=== PATIENT | female | born 1965 | race Caucasian/White ===

== ENCOUNTER 2021-12-30 16:37 | Inpatient (IN) | payer BC ==
[2021-12-30 17:17] LABS: #Basophils 0.1 10x3/uL (0.0-0.2); #Eosinphils 0.5 10x3/uL (0.0-0.5); #Monocytes 0.2 10x3/uL (0.0-1.1); #Neutrophils 1.9 10x3/uL (1.5-8.4); %Basophils 1.5 % (0.0-2.0); %Eosinophils 9.9 % (0.0-6.0); %Lymphocytes 41.8 % (18.0-47.0); %Neutrophils 41.6 % (40.0-75.0); Hemoglobin 13.5 g/dL (12.0-15.5); Mean Corpuscular HGB CONC 34.2 g/dL (32.0-36.0); Mean Corpuscular Hemoglobin 30.4 pg (27.0-33.0); Mean Platelet Volume 10.1 fl (7.4-10.4); Platelet Count 278 10x3/uL (150-450); Red Blood Cell (RBC) Count 4.44 10x6/uL (3.90-5.03); White Blood Cell (WBC) Count 4.6 10x3/uL (3.5-10.5)
[2021-12-30 17:27] LABS: ALT (SGPT) 70 U/L (8-55); AST (SGOT) 137 U/L (5-34); Albumin 2.6 g/dL (3.5-5.0); Alkaline Phosphatase 116 U/L (40-110); Anion Gap 15 mmol/L (10-20); BUN (Urea Nitrogen) 9 mg/dL (9.8-20.1); Bilirubin, Total 1.4 mg/dL (0.2-1.2); Calc. Creatinine Clearance 0 mL/min (70-130); Calcium 8.6 mg/dL (7.8-10.44); Carbon Dioxide 24 mmol/L (22-29); Chloride 104 mmol/L (98-107); Estimated GFR 72; Globulin 2.9 g/dL (2.4-3.5); Glucose 119 mg/dL (70-105); Lipase 12 U/L (8-78); Potassium 3.3 mmol/L (3.5-5.1); Protein, Total 5.5 g/dL (6.0-8.3); Sodium 140 mmol/L (136-145)
[2021-12-30] MEDS ORDERED: Ondansetron ODT 4 MG TAB ONE (19:23)
[2021-12-30 20:26] LABS: Lactic Acid 1.3 mmol/L (0.5-2.2)
[2021-12-30] MEDS ORDERED: Potassium Chloride 20 MEQ TAB ONE (20:53)
[2021-12-30 21:36] LABS: Bilirubin Neg (Negative); Blood, Urine 10 (Negative); Clarity Clear (Clear); Glucose, Urine (Dipstick) Normal (Negative); Ketone, Urine 5 mg/dL (Negative); Leukocyte 25 (Negative); Nitrite Negative (Negative); Protein, Urine (Dipstick) 15 mg/dl (Neg-Trace)
[2021-12-30 21:52] LABS: Bacteria/HPF Rare-Few HPF (None Seen); Squamous Epithelial 0-3 HPF (0-3)
[2021-12-31] MEDS ORDERED: Ondansetron PF 4 MG/2 ML Vial IVP PRN (00:29)
[2021-12-31 02:16] LABS: SARS-CoV-2 NAA Rapid Test Not Detected (NotDetected)
[2021-12-31] MEDS: Pantoprazole 40 MG VIAL IVP SCH ×2 (02:57→17:51)
[2021-12-31] MEDS: Multivitamins, Adult 10 ML, Folic Acid 1 MG, Thiamine HCl 100 MG in Dextrose 5 %-0.45 %... IV SCH (02:57)
[2021-12-31] MEDS: Thiamine HCl 200 MG/2 ML VIAL SLOW IVP SCH (03:16)
[2021-12-31] MEDS ORDERED: FLU VACC QS2022-23(6MOS UP)/PF 60 MCG/0.5 ML SYRINGE IM ONE (04:30)
[2021-12-31 06:01] LABS: #Basophils 0.1 10x3/uL (0.0-0.2); #Eosinphils 0.1 10x3/uL (0.0-0.5); #Monocytes 0.3 10x3/uL (0.0-1.1); #Neutrophils 1.6 10x3/uL (1.5-8.4); %Basophils 1.3 % (0.0-2.0); %Eosinophils 2.3 % (0.0-6.0); %Lymphocytes 47.3 % (18.0-47.0); %Monocytes 7.1 % (0.0-10.0); %Neutrophils 41.7 % (40.0-75.0); Hemoglobin 11.1 g/dL (12.0-15.5); Mean Corpuscular HGB CONC 34.8 g/dL (32.0-36.0); Mean Corpuscular Hemoglobin 31.2 pg (27.0-33.0); Mean Corpuscular Volume 89.6 fl (81.6-98.3); Platelet Count 181 10x3/uL (150-450); RBC Distribution Width 16.4 % (11.5-14.5); Red Blood Cell (RBC) Count 3.56 10x6/uL (3.90-5.03); White Blood Cell (WBC) Count 3.9 10x3/uL (3.5-10.5)
[2021-12-31 06:09] LABS: Anion Gap 10 mmol/L (10-20); BUN (Urea Nitrogen) 7 mg/dL (9.8-20.1); Calc. Creatinine Clearance 77 mL/min (70-130); Calcium 7.7 mg/dL (7.8-10.44); Carbon Dioxide 23 mmol/L (22-29); Chloride 110 mmol/L (98-107); Estimated GFR 84; Glucose 110 mg/dL (70-105); Magnesium 1.7 mg/dL (1.6-2.6); Potassium 3.4 mmol/L (3.5-5.1); Sodium 140 mmol/L (136-145)
[2021-12-31 06:55] LABS: HBSAg Index 0.22 S/CO (0-0.99); Hep B Surf Ag Non-Reactive S/CO (NonReactive); Thyroid Stimulating Hormone 8.9838 uIU/mL (0.35-4.94)
[2021-12-31] MEDS: Potassium Chloride 20 MEQ in Lactated Ringer's 1,000 ML IV SCH ×2 (09:47→17:55)
[2021-12-31] MEDS: Enoxaparin Sodium 40 MG/0.4 ML SYRINGE SC SCH (09:47)
[2021-12-31 13:13] LABS: Amphetamine Not Detected (NotDetected); Barbiturates Screen Not Detected (NotDetected); Benzodiazepine Screen Not Detected (NotDetected); Cocaine Metabolite Screen Not Detected (NotDetected); Methadone Not Detected (NotDetected); Methamphetamine Not Detected (NotDetected); Opiate Screen Not Detected (NotDetected); Oxycodone Screen Not Detected (NotDetected); Phencyclidine (PCP) Not Detected (NotDetected); THC/Cannabinoid Screen Not Detected (NotDetected); Tricyclic Screen Not Detected (NotDetected)
[2021-12-31 13:19] LABS: Hep C IgG Ab Non-Reactive (NonReactive); Hep C Index 0.08 S/CO (0-0.79)
[2021-12-31] MEDS ORDERED: PROPOFOL 20 ML ONE (13:35)
[2021-12-31] MEDS ORDERED: Fentanyl 100 MCG/2 ML VIAL ONE (13:35)
[2021-12-31] MEDS ORDERED: Iopamidol 370 76% 100 ML VIAL ONE (13:43)
[2021-12-31] MEDS: risperiDONE 0.25 MG TAB PO SCH ×2 (17:54→20:13)
[2021-12-31] MEDS: Gabapentin 400 MG CAP PO SCH (20:12)
[2022-01-01] MEDS: Potassium Chloride 20 MEQ in Lactated Ringer's 1,000 ML IV SCH ×2 (00:48→10:48)
[2022-01-01] MEDS: Multivitamins, Adult 10 ML, Folic Acid 1 MG, Thiamine HCl 100 MG in Dextrose 5 %-0.45 %... IV SCH (02:54)
[2022-01-01] MEDS: Pantoprazole 40 MG VIAL IVP SCH ×2 (03:27→16:32)
[2022-01-01] MEDS: Thiamine HCl 200 MG/2 ML VIAL SLOW IVP SCH (03:27)
[2022-01-01 06:20] LABS: ALT (SGPT) 50 U/L (8-55); AST (SGOT) 96 U/L (5-34); Albumin 1.8 g/dL (3.5-5.0); Alkaline Phosphatase 84 U/L (40-110); Anion Gap 10 mmol/L (10-20); BUN (Urea Nitrogen) 5 mg/dL (9.8-20.1); Bilirubin, Total 1.6 mg/dL (0.2-1.2); Calc. Creatinine Clearance 83 mL/min (70-130); Calcium 7.8 mg/dL (7.8-10.44); Carbon Dioxide 24 mmol/L (22-29); Chloride 112 mmol/L (98-107); Estimated GFR 92; Glucose 95 mg/dL (70-105); Iron Binding Capacity, Total 75 mcg/dL (265-497); Magnesium 1.6 mg/dL (1.6-2.6); Phosphorus 3.3 mg/dL (2.3-4.7); Potassium 4.6 mmol/L (3.5-5.1); Protein, Total 3.8 g/dL (6.0-8.3); Sodium 141 mmol/L (136-145)
[2022-01-01 07:24] LABS: Ferritin 449.62 ng/mL (10-291)
[2022-01-01 07:26] VITALS: BMI 26.4
[2022-01-01] MEDS: Enoxaparin Sodium 40 MG/0.4 ML SYRINGE SC SCH (09:38)
[2022-01-01] MEDS: Stress 600 With Zinc 1 TAB PO SCH (09:40)
[2022-01-01] MEDS: risperiDONE 0.25 MG TAB PO SCH ×3 (09:40→21:51)
[2022-01-01] MEDS: clonazePAM 0.5 MG TAB PO SCH (09:41)
[2022-01-01] MEDS ORDERED: Morphine 4 MG/ML VIAL SLOW IVP SCH (10:30)
[2022-01-01 11:03] LABS: Troponin I Less than 0.010 ng/mL (< 0.028)
[2022-01-01] MEDS: Albumin 25% 25 GM/100 ML BOT IVPB SCH (21:51)
[2022-01-01] MEDS: Gabapentin 400 MG CAP PO SCH (21:51)
[2022-01-02] MEDS: Multivitamins, Adult 10 ML, Folic Acid 1 MG, Thiamine HCl 100 MG in Dextrose 5 %-0.45 %... IV SCH (03:01)
[2022-01-02] MEDS: Potassium Chloride 20 MEQ in Lactated Ringer's 1,000 ML IV SCH ×3 (03:01→21:48)
[2022-01-02] MEDS: Pantoprazole 40 MG VIAL IVP SCH ×2 (03:01→15:04)
[2022-01-02] MEDS: Thiamine HCl 200 MG/2 ML VIAL SLOW IVP SCH (03:01)
[2022-01-02] MEDS: Albumin 25% 25 GM/100 ML BOT IVPB SCH ×2 (06:23→15:04)
[2022-01-02] MEDS ORDERED: Levothyroxine Sodium 100 MCG TAB PO SCH (09:00)
[2022-01-02] MEDS: risperiDONE 0.25 MG TAB PO SCH ×3 (10:00→21:50)
[2022-01-02] MEDS: clonazePAM 0.5 MG TAB PO SCH (10:00)
[2022-01-02] MEDS: Enoxaparin Sodium 40 MG/0.4 ML SYRINGE SC SCH (10:00)
[2022-01-02] MEDS ORDERED: Levothyroxine Sodium 100 MCG TAB ONE (10:03)
[2022-01-02] MEDS: Stress 600 With Zinc 1 TAB PO SCH (10:05)
[2022-01-02] MEDS ORDERED: Ketorolac Tromethamine 30 MG/ML VIAL IVP SCH (17:45)
[2022-01-02] MEDS ORDERED: Scopolamine 1.5 mg/72 hour Patch TOP SCH (21:00)
[2022-01-02] MEDS: Gabapentin 400 MG CAP PO SCH (21:50)
[2022-01-03] MEDS: Pantoprazole 40 MG VIAL IVP SCH ×2 (03:35→15:10)
[2022-01-03] MEDS: Thiamine HCl 200 MG/2 ML VIAL SLOW IVP SCH (03:35)
[2022-01-03] MEDS: Multivitamins, Adult 10 ML, Folic Acid 1 MG, Thiamine HCl 100 MG in Dextrose 5 %-0.45 %... IV SCH (03:35)
[2022-01-03] MEDS ORDERED: Levothyroxine Sodium 100 MCG TAB PO SCH (06:00)
[2022-01-03] MEDS: Potassium Chloride 20 MEQ in Lactated Ringer's 1,000 ML IV SCH ×2 (06:46→17:30)
[2022-01-03] MEDS ORDERED: EPINEPHrine 1 MG/ML AMP ONE (07:41)
[2022-01-03] MEDS ORDERED: Iopamidol 30 ML ONE (07:42)
[2022-01-03] MEDS ORDERED: Bupivacaine PF 0.5% 30 ML VIAL ONE (07:42)
[2022-01-03] MEDS ORDERED: PROPOFOL 20 ML ONE (07:57)
[2022-01-03] MEDS ORDERED: Fentanyl 250 MCG/5 ML VIAL ONE (07:58)
[2022-01-03] MEDS ORDERED: Glycopyrrolate 0.2 MG/ML 5 ML SYRINGE ONE (07:58)
[2022-01-03] MEDS ORDERED: Rocuronium Bromide 10 MG/ML (10ML VIAL) ONE (07:58)
[2022-01-03] MEDS ORDERED: Metoclopramide HCl 10 MG/2 ML VIAL ONE (07:58)
[2022-01-03] MEDS ORDERED: Dexamethasone 4 mg/ml Vial ONE (07:58)
[2022-01-03] MEDS ORDERED: Ondansetron PF 4 MG/2 ML Vial ONE (07:58)
[2022-01-03] MEDS ORDERED: Ketorolac Tromethamine 30 MG/ML VIAL ONE (07:59)
[2022-01-03] MEDS: clonazePAM 0.5 MG TAB PO SCH (08:03)
[2022-01-03] MEDS: risperiDONE 0.25 MG TAB PO SCH ×2 (08:03→15:11)
[2022-01-03] MEDS: Stress 600 With Zinc 1 TAB PO SCH (08:03)
[2022-01-03] MEDS: Enoxaparin Sodium 40 MG/0.4 ML SYRINGE SC SCH (08:03)
[2022-01-03] MEDS ORDERED: Lidocaine 2% MPF 10 ML AMP (For Epidural Use) ONE (08:05)
[2022-01-03] MEDS ORDERED: traMADol HCl 50 MG TAB PO PRN (08:56)
[2022-01-03] MEDS ORDERED: Acetaminophen 500 MG TAB PO SCH ×2 (09:00)
[2022-01-03] MEDS ORDERED: Ondansetron ODT 4 MG TAB SL PRN (09:07)
[2022-01-03] MEDS ORDERED: ePHEDrine Sulfate 50 MG/10 ML VIAL ONE (09:19)
[2022-01-03] MEDS ORDERED: PHENYLEPHRINE-NS 100 MCG/ML 10 ML SYRINGE ONE ×2 (09:26→12:42)
[2022-01-03] MEDS: Acetaminophen 500 MG TAB PO SCH ×2 (11:36→17:35)
[2022-01-03] MEDS ORDERED: Fentanyl 100 MCG/2 ML VIAL ONE (12:20)
[2022-01-03] MEDS ORDERED: Succinylcholine 200 MG/10 ml SYRINGE FS ONE (12:35)
[2022-01-03] MEDS ORDERED: Lidocaine 2% PF 100 mg/5 ml Syringe ONE (12:41)
[2022-01-03] MEDS ORDERED: Esmolol 100 MG/10 ML VIAL ONE (13:04)
[2022-01-03] MEDS: Ketorolac Tromethamine 30 MG/ML VIAL IVP SCH (15:09)
[2022-01-03 15:13] LABS: Calcitriol (1,25 di-OH Vit D) 28.3 pg/mL (24.8-81.5)
[2022-01-03 16:01] LABS: ANA Symphony (Qualitative) Negative (Negative); ANA Symphony (Quantitative) 0.4 Ratio (< 0.7 Negative); EliA Vaculitis New Method **** NEW METHOD ****; Mitochondrial Ab 2.1 U/mL (<4 Negative); dsDNA IgG Antibody 4.6 IU/mL (<10 Negative)
[2022-01-04] MEDS: Gabapentin 400 MG CAP PO SCH (00:08)
[2022-01-04] MEDS: Acetaminophen 500 MG TAB PO SCH ×2 (00:09→08:17)
[2022-01-04] MEDS: risperiDONE 0.25 MG TAB PO SCH ×2 (00:09→09:41)
[2022-01-04] MEDS: Ketorolac Tromethamine 30 MG/ML VIAL IVP SCH ×3 (00:09→09:42)
[2022-01-04] MEDS: Pantoprazole 40 MG VIAL IVP SCH (03:47)
[2022-01-04] MEDS: Thiamine HCl 200 MG/2 ML VIAL SLOW IVP SCH (03:49)
[2022-01-04 05:50] LABS: #Eosinphils 0.1 10x3/uL (0.0-0.5); #Monocytes 0.3 10x3/uL (0.0-1.1); #Neutrophils 1.6 10x3/uL (1.5-8.4); %Basophils 0.8 % (0.0-2.0); %Eosinophils 3.5 % (0.0-6.0); %Lymphocytes 43.6 % (18.0-47.0); %Monocytes 7.4 % (0.0-10.0); %Neutrophils 44.4 % (40.0-75.0); Hemoglobin 8.5 g/dL (12.0-15.5); Mean Corpuscular HGB CONC 33.7 g/dL (32.0-36.0); Mean Corpuscular Hemoglobin 30.7 pg (27.0-33.0); Platelet Count 141 10x3/uL (150-450); RBC Distribution Width 17.2 % (11.5-14.5); Red Blood Cell (RBC) Count 2.77 10x6/uL (3.90-5.03); White Blood Cell (WBC) Count 3.7 10x3/uL (3.5-10.5)
[2022-01-04] MEDS ORDERED: LEVOTHYROXINE PO SCH (06:00)
[2022-01-04 06:04] LABS: ALT (SGPT) 44 U/L (8-55); AST (SGOT) 91 U/L (5-34); Albumin 2.3 g/dL (3.5-5.0); Alkaline Phosphatase 54 U/L (40-110); Anion Gap 10 mmol/L (10-20); BUN (Urea Nitrogen) 5 mg/dL (9.8-20.1); Bilirubin, Total 0.8 mg/dL (0.2-1.2); Calc. Creatinine Clearance 97 mL/min (70-130); Carbon Dioxide 26 mmol/L (22-29); Chloride 112 mmol/L (98-107); Estimated GFR 95; Globulin 1.5 g/dL (2.4-3.5); Glucose 68 mg/dL (70-105); Potassium 4.5 mmol/L (3.5-5.1); Protein, Total 3.8 g/dL (6.0-8.3); Sodium 143 mmol/L (136-145)
[2022-01-04] MEDS ORDERED: Ketorolac Tromethamine 30 MG/ML VIAL ONE (08:24)
[2022-01-04 09:24] VITALS: BP 88/50; TEMP 98.9
[2022-01-04] MEDS: clonazePAM 0.5 MG TAB PO SCH (09:41)
[2022-01-04] MEDS: Enoxaparin Sodium 40 MG/0.4 ML SYRINGE SC SCH (09:42)
[2022-01-04] MEDS: Stress 600 With Zinc 1 TAB PO SCH (09:46)
== END 2022-01-04 11:45 | disposition home or self-care (01) | DRG 418 ==
LOC: CSHERS 16:37 → CSHTELE 23:47 → OBSVTOIN 23:48 → UNDOADMOB 12-31 01:52 → CSHTELE 12-31 01:52
PROVIDERS: ADMIT Family Medicine; ATTEND Family Medicine
PROC: 0DJ08ZZ Inspection of Upper Intestinal Tract, Via Natural or Artificial Opening Endoscopic (ICD-10-PCS; 2021-12-31)
PROC: 30233J1 Transfusion of Nonautologous Serum Albumin into Peripheral Vein, Percutaneous Approach (ICD-10-PCS; 2022-01-01)
PROC: 0FT44ZZ Resection of Gallbladder, Percutaneous Endoscopic Approach (ICD-10-PCS; principal; 2022-01-03)
PROC: BF101ZZ Fluoroscopy of Bile Ducts using Low Osmolar Contrast (ICD-10-PCS; 2022-01-03)
DX: K80.10 Calculus of gallbladder with chronic cholecystitis without obstruction (principal); E44.0 Moderate protein-calorie malnutrition; E03.9 Hypothyroidism, unspecified; E87.6 Hypokalemia; F31.9 Bipolar disorder, unspecified; R13.19 Other dysphagia; E86.0 Dehydration; Z20.822 Contact with and (suspected) exposure to COVID-19; K29.70 Gastritis, unspecified, without bleeding; Z88.2 Allergy status to sulfonamides; Z90.49 Acquired absence of other specified parts of digestive tract; Z68.28 Body mass index [BMI] 28.0-28.9, adult
CPT/HCPCS: 36415; 36416; 47532; 74177; 76705; 78227; 80048; 80053; 80178; 80306; 81003; 81015; 82390; 82607; 82652; 82728; 83516; 83550; 83605; 83690; 83735; 84100; 84425; 84443; 84484; 85025; 86015; 86038; 86225; 86708; 86803; 87086; 87340; 88304; 93005; 93010; 96360; A9537; C1713; C9113; J0171; J1100; J1610; J1650; J1885; J1956; J2001; J2405; J2704; J2765; J3010; J3411; J3480; J7042; J7120; P9047; Q0162; Q9967; S0020; U0002

== ENCOUNTER 2022-01-11 16:19 | Emergency (ER) | payer BC ==
[2022-01-11 18:53] LABS: Bilirubin Neg (Negative); Blood, Urine 250 (Negative); Clarity Sl. Cloudy (Clear); Glucose, Urine (Dipstick) Normal (Negative); Ketone, Urine 5 mg/dL (Negative); Leukocyte 100 (Negative); Nitrite Negative (Negative); Protein, Urine (Dipstick) 30 mg/dl (Neg-Trace); Specific Gravity, Urine 1.015 (1.005-1.030); pH, Urine 6.5 (5.0-9.0)
[2022-01-11 19:01] LABS: Bacteria/HPF Rare-Few HPF (None Seen); Mucous/LPF 1+ LPF (<2+)
[2022-01-11 19:45] LABS: #Basophils 0.1 10x3/uL (0.0-0.2); #Eosinphils 0.1 10x3/uL (0.0-0.5); #Monocytes 0.4 10x3/uL (0.0-1.1); #Neutrophils 2.9 10x3/uL (1.5-8.4); %Eosinophils 2.5 % (0.0-6.0); %Lymphocytes 29.1 % (18.0-47.0); %Monocytes 7.4 % (0.0-10.0); %Neutrophils 59.2 % (40.0-75.0); Hemoglobin 10.2 g/dL (12.0-15.5); Mean Corpuscular HGB CONC 33.2 g/dL (32.0-36.0); Mean Corpuscular Hemoglobin 31.8 pg (27.0-33.0); Mean Corpuscular Volume 95.6 fl (81.6-98.3); Mean Platelet Volume 9.6 fl (7.4-10.4); Platelet Count 235 10x3/uL (150-450); RBC Distribution Width 18.2 % (11.5-14.5); Red Blood Cell (RBC) Count 3.21 10x6/uL (3.90-5.03); White Blood Cell (WBC) Count 4.8 10x3/uL (3.5-10.5)
[2022-01-11 19:55] LABS: Lactic Acid 3.2 mmol/L (0.5-2.2)
[2022-01-11 19:59] LABS: ALT (SGPT) 107 U/L (8-55); AST (SGOT) 232 U/L (5-34); Albumin 2.7 g/dL (3.5-5.0); Alkaline Phosphatase 140 U/L (40-110); Anion Gap 14 mmol/L (10-20); BUN (Urea Nitrogen) 6 mg/dL (9.8-20.1); Bilirubin, Total 1.1 mg/dL (0.2-1.2); Calc. Creatinine Clearance 0 mL/min (70-130); Calcium 8.5 mg/dL (7.8-10.44); Carbon Dioxide 22 mmol/L (22-29); Chloride 110 mmol/L (98-107); Estimated GFR 102; Globulin 2.4 g/dL (2.4-3.5); Glucose 87 mg/dL (70-105); Lipase 10 U/L (8-78); Potassium 4.7 mmol/L (3.5-5.1); Protein, Total 5.1 g/dL (6.0-8.3); Sodium 141 mmol/L (136-145)
[2022-01-11 23:43] LABS: Lactic Acid 1.2 mmol/L (0.5-2.2)
== END 2022-01-12 00:05 | disposition home or self-care (01) ==
LOC: CSHERS 16:19
DX: E86.0 Dehydration (principal)
CPT/HCPCS: 36415; 80053; 81003; 81015; 83605; 83690; 84484; 85025; 93005; 96360